=== PATIENT | female | born 1945 | race Caucasian/White ===

== ENCOUNTER 2022-04-04 02:55 | Emergency (ER) | payer MEDICARE, BC ==
[2022-04-04] MEDS: Aspirin 81 MG Tab.Chew PO ONE (03:09)
[2022-04-04] MEDS: Nitroglycerin 0.4 MG Tab.SL SL ONE (03:35)
[2022-04-04 04:26] LABS: PTT,PARTIAL THROMBOPLSTIN TIME 24.7 SEC (23.2-32.3)
[2022-04-04 04:42] LABS: CORONAVIRUS COVID-19 NAA NEGATIVE (NEGATIVE)
[2022-04-04] MEDS: HYDROmorphone 1 MG/ML Syringe IVPUSH ONE (04:46)
[2022-04-04] MEDS: Iopamidol 755 Mg/ML 100 ML Bottle IVPUSH ONE ×2 (04:46→14:27)
== END 2022-04-04 05:43 ==
LOC: CC.ED 02:55
DX: R07.89 Other chest pain (principal); Z79.899 Other long term (current) drug therapy; Z88.5 Allergy status to narcotic agent; Z20.822 Contact with and (suspected) exposure to COVID-19
CPT/HCPCS: 0240U; 36415; 71046; 71275; 80053; 83690; 83735; 84484; 85025; 85610; 85730; 93010; 99284; 99285; A9270; J1170; Q9967